=== PATIENT | female | born 1950 | race Caucasian/White ===

== ENCOUNTER 2021-07-16 12:13 | Emergency (ER) | payer OTHER, MEDICAID ==
[~2021-07-16] VITALS: Ht 165.1 cm; Wt 68.0 kg
[2021-07-16] MEDS ORDERED: SODIUM CHLORIDE 0.9% 1,000 ML IV ONE (13:00)
[2021-07-16] MEDS ORDERED: SODIUM CHLORIDE 0.9% 1,000 ML IVB ONE (13:00)
[2021-07-16 13:34] LABS: Basophils # (auto) 0 10 ^3/uL (0-0.2); Basophils % (auto) 0.2 % (0.0-2.0); Eosinophils # (auto) 0 10 ^3/uL (0-0.8); Eosinophils % (auto) 0.1 % (0.0-7.0); Hematocrit 27.3 % (36.0-46.0); Hemoglobin 8.9 g/dL (12.2-16.2); Lymphocytes # (auto) 0.9 10 ^3/uL (0.4-5.4); Lymphocytes % (auto) 4.3 % (10.0-50.0); Mean Corpuscular Hemoglobin 27.5 pg (28.0-32.0); Mean Corpuscular Hgb Conc. 32.4 g/dL (32.0-36.0); Mean Corpuscular Volume 84.8 fL (80.0-100.0); Monocytes # (auto) 1.1 10 ^3/uL (0-1.3); Monocytes % (auto) 5.2 % (0.0-12.0); Neutrophils % (auto) 90.2 % (37.0-80.0); Red Blood Cells 3.22 10^6/uL (4.0-5.20); Red Cell Distribution Width 16.2 % (11.8-14.3); White Blood Cell 21.1 10^3/uL (4.4-10.8)
[2021-07-16] MEDS ORDERED: HYDROcodone-ACET 5/325MG TAB PO ONE (14:30)
[2021-07-16 15:49] LABS: Albumin 1.7 g/dL (3.4-5.0); BUN/Creatinine Ratio 56.5; Calcium 8.7 mg/dL (8.5-10.1); Potassium 3.2 mmol/L (3.5-5.1)
[2021-07-16 15:52] LABS: Bilirubin, Total 0.4 mg/dL (0.2-1.0); Total Protein 5.1 g/dL (6.4-8.2)
[2021-07-16] MEDS ORDERED: FUROSEMIDE 40 MG/4 ML VIAL IV ONE (17:00)
[2021-07-16] MEDS ORDERED: AZITHROMYCIN 500MG/ 250ML 250 ML IV ONE (17:00)
[2021-07-16] MEDS ORDERED: POTASSIUM EFFERVESENT TAB 25 MEQ PO ONE (17:00)
[2021-07-16] MEDS ORDERED: cefTRIAXone 1GM/50ML D5W 50 ML IV ONE (17:00)
[2021-07-16 17:52] LABS: Urine Bacteria NONE SEEN /hpf (None Seen); Urine Blood 1+ /uL (Negative); Urine WBC 2 /hpf (0 - 5)
[2021-07-16 20:22] VITALS: BP 122/40
== END 2021-07-16 22:46 | disposition home or self-care (01) ==
LOC: ER 12:13 → EDBD 12:13 → ER 22:46
DX: J18.9 Pneumonia, unspecified organism (principal); E87.6 Hypokalemia; D72.828 Other elevated white blood cell count; K44.9 Diaphragmatic hernia without obstruction or gangrene; E43 Unspecified severe protein-calorie malnutrition; I11.0 Hypertensive heart disease with heart failure; I50.9 Heart failure, unspecified; Z68.25 Body mass index [BMI] 25.0-25.9, adult; Z20.822 Contact with and (suspected) exposure to COVID-19
CPT/HCPCS: 36415; 71045; 80053; 81001; 83735; 84443; 84484; 85025; 87426; 93005; 96361; 96365; 96368; 96375; 99285; J0456; J0696; J1940; J7030

== ENCOUNTER 2021-07-18 20:00 | Emergency (ER) | payer OTHER, MEDICAID ==
[~2021-07-18] VITALS: Ht 157.5 cm; Wt 69.9 kg
[2021-07-18] MEDS ORDERED: ONDANSETRON HCL 4 MG/2 ML VIAL IV ONE (21:45)
[2021-07-18] MEDS ORDERED: HYDROcodone-ACET 10/325MG TAB PO ONE (21:45)
[2021-07-18] MEDS ORDERED: MORPHINE SULFATE 4 MG/ML SYR/VIAL IV ONE (21:45)
[2021-07-18 21:58] LABS: Albumin 1.8 g/dL (3.4-5.0); Calcium 8.3 mg/dL (8.5-10.1); Potassium 3.3 mmol/L (3.5-5.1)
[2021-07-18 22:08] LABS: Bilirubin, Total 0.4 mg/dL (0.2-1.0); CRP High Sensitivity 9.78 mg/dL (< 0.3); Total Protein 5.4 g/dL (6.4-8.2)
[2021-07-18 22:20] LABS: Basophils # (auto) 0 10 ^3/uL (0-0.2); Basophils % (auto) 0.1 % (0.0-2.0); Eosinophils # (auto) 0 10 ^3/uL (0-0.8); Hematocrit 23.3 % (36.0-46.0); Hemoglobin 7.2 g/dL (12.2-16.2); Lymphocytes # (auto) 0.6 10 ^3/uL (0.4-5.4); Lymphocytes % (auto) 4.1 % (10.0-50.0); Mean Corpuscular Hemoglobin 27.1 pg (28.0-32.0); Mean Corpuscular Volume 87.2 fL (80.0-100.0); Monocytes # (auto) 0.7 10 ^3/uL (0-1.3); Monocytes % (auto) 4.3 % (0.0-12.0); Neutrophils # (auto) 13.9 10 ^3/uL (1.6-8.6); Neutrophils % (auto) 91.5 % (37.0-80.0); Nucleated Red Blood Cells % 0.1 %; Red Blood Cells 2.67 10^6/uL (4.0-5.20); Red Cell Distribution Width 17.1 % (11.8-14.3); White Blood Cell 15.1 10^3/uL (4.4-10.8)
[2021-07-19] MEDS ORDERED: IOHEXOL 350 MG/ML 100ML IJ ONE (03:41)
[2021-07-19] MEDS ORDERED: APIXABAN 5 MG TAB PO SCH (10:00)
[2021-07-19 10:48] VITALS: BP 122/60
== END 2021-07-19 10:53 | disposition home or self-care (01) ==
LOC: EDBD 20:00 → ER 20:04
DX: R06.02 Shortness of breath (principal); R10.9 Unspecified abdominal pain; I11.0 Hypertensive heart disease with heart failure; I50.9 Heart failure, unspecified; J44.9 Chronic obstructive pulmonary disease, unspecified; Z20.822 Contact with and (suspected) exposure to COVID-19
CPT/HCPCS: 36415; 71045; 74176; 80053; 82728; 85025; 85379; 86141; 87426; 93005; 99285; C9803; U0003